=== PATIENT | female | born 1975 | race Caucasian/White ===

== ENCOUNTER 2024-01-17 03:35 | Emergency (ER) | payer OTHER ==
[~2024-01-17] VITALS: Ht 157.4 cm; Wt 81.6 kg
[~2024-01-17 03:35] MED LIST: ANAPROX DS550 MG PO; CLARITIN10 MG PO; FLEXERIL10 MG PO; ZITHROMAX Z PA250 MG PO
[2024-01-17 03:53] VITALS: BP 123/81
[2024-01-17] MEDS ORDERED: QUETIAPINE FUMA50 M1 PO (04:14)
[2024-01-17] MEDS ORDERED: HYDROXYZINE HCL25 MG PO (04:14)
[2024-01-17] MEDS ORDERED: GABAPENTIN400 MG PO (04:14)
[2024-01-17 04:15] LABS: BASO # 0.1 10*3/uL (0.0-0.1); BASO % 0.8 % (0.0-1.0); EOS # 0.3 10*3/uL (0.0-0.4); LYMPH # 3.7 10*3/uL (1.3-4.4); LYMPH % 27.7 % (27.0-41.0); MEAN CELL VOLUME 94.4 fl (81.0-99.0); MEAN CORPUSCULAR HGB 31.2 pg (27.0-31.0); MEAN CORPUSCULAR HGB CONC 33.1 g/dl (33.0-37.0); MEAN PLATELET VOLUME 9.2 fl (9.6-12.3); MONO # 1.4 10*3/uL (0.1-1.0); MONO % 10.3 % (3.0-9.0); NEUT # 7.8 10*3/uL (2.3-7.9); NEUT % 58.6 % (47.0-73.0); PLATELET COUNT AUTOMATED 313 10*3/uL (130-400); RED BLOOD COUNT 4.13 10*6/uL (4.10-5.10); RED CELL DISTRI WIDTH 14.6 % (0-14.5); WHITE BLOOD COUNT 13.4 10*3/uL (4.8-10.8)
[2024-01-17 04:33] LABS: BUN 11 mg/dl (9-23); CHLORIDE 105 mmol/L (98-107); POTASSIUM 3.9 mmol/L (3.4-5.1)
[2024-01-17] MEDS ORDERED: AVPAK AZITHROM250 MG PO (04:47)
[2024-01-17] MEDS ORDERED: MEDROL DOSEPAK4 MG PO (04:47)
== END 2024-01-17 04:55 | disposition home or self-care (01) ==
LOC: ED 03:35
PROVIDERS: Internal Medicine
DX: J40 Bronchitis, not specified as acute or chronic (principal); F17.200 Nicotine dependence, unspecified, uncomplicated; Z98.890 Other specified postprocedural states